=== PATIENT | female | born 1985 | race Caucasian/White ===

== ENCOUNTER 2020-04-16 11:50 | Day surgery (SDC) | payer OTHER ==
[2020-04-15 09:23] VITALS: BMI 38.7
[2020-04-15 10:47] LABS: Hemoglobin 13.4 g/dL (12.0-16.0); Mean Corpuscular Hemoglobin 31.9 pg (27.0-31.0); Mean Corpuscular Volume 96.6 fL (78.0-98.0); Mean Platelet Volume 9.5 fL (7.4-10.4); Platelet Count 224 thou/uL (130-400); Red Blood Cell (RBC) Count 4.19 mill/uL (4.20-5.40); White Blood Cell (WBC) Count 5.5 thou/uL (4.8-10.8)
[2020-04-15 17:36] LABS: SARS-CoV-2 MS2 Positive; SARS-CoV-2 N Gene Negative; SARS-CoV-2 S Gene Negative; SARS-CoV-2 orf1ab Negative
[~2020-04-16 11:50] MED LIST: Dexamethasone 20 MG/5 ML VIAL ONE; EPHEDRINE 25 MG/5 ML SYRINGE ONE; Lidocaine 1% PF 5 ML VIAL ONE; Ondansetron PF 4 MG/2 ML Vial ONE; PHENYLEPHRINE-NS 100 MCG/ML 10 ML SYRINGE ONE; PROPOFOL 200 MG/20 ML VIAL ONE; Succinylcholine Chloride 20 MG/ML 10 ml SYRINGE FS ONE
[2020-04-16] MEDS ORDERED: Gabapentin 300 MG CAP ONE (12:28)
[2020-04-16] MEDS ORDERED: CeleCOXIB 100 MG CAP ONE (12:28)
[2020-04-16] MEDS ORDERED: Fentanyl 100 MCG/2 ML VIAL ONE ×2 (12:34→13:27)
[2020-04-16] MEDS ORDERED: Promethazine HCl 25 MG/ML VIAL ONE (14:07)
--- NOTE | 2020-04-16 22:03 | OP ---
DATE OF PROCEDURE: 04/16/2020 PREOPERATIVE DIAGNOSIS: Missed miscarriage at 10 weeks, desires surgical management. POSTOPERATIVE DIAGNOSIS: Missed miscarriage at 10 weeks, desires surgical management. PROCEDURE PERFORMED: Cervical dilation and suction curettage. ANESTHESIA: LMA. ESTIMATED BLOOD LOSS: 300 mL. COMPLICATIONS: None. OPERATIVE FINDINGS: Uterus sounds to 13 cm. PROCEDURE DETAILS: The patient was taken back to the OR with IV fluids running. When she was in the OR, anesthesia was obtained with the patient in dorsal supine position. Next, the patient was placed in the lithotomy position, and the vagina was prepped and draped for the procedure. The bladder was drained. An operative speculum was placed into the vagina and the anterior lip of the cervix was grasped with a tenaculum. The uterus sounded to 13 cm. The cervix was serially dilated with Hegar dilators. Attention was made to pass an 11 mm curette; however, it would not easily pass through the internal cervical os. A 9 mm curette was used and passed through the cervical os. It was placed on suction, which was then calibrated. With gentle manual rotation of the suction curettage, products of conception were removed from the uterus and into a specimen catch. This procedure was repeated until no further products of conception were noted through the suction tubing and minimal bleeding were noted through the suction tubing. A sharp curette was used to pass through the cervix for curettage of the endometrial cavity. Once it was felt that there was uterine cry in all planes and there was no further POC, the procedure was completed. The tenaculum was removed with minimal bleeding from the tenaculum site. No bleeding was noted from the cervical os. The patient was cleaned, dried, and taken out of lithotomy position. She awoke from anesthesia and was transferred to the recovery room in good condition. The products of conception were placed into a plastic container with saline that was provided from the [facility]. I have taken the products of conception back to my office where with the patient's consent, they will be mailed today to [facility] for genetic sequencing. Job ID: [id number]
== END 2020-04-16 16:11 | disposition home or self-care (01) ==
LOC: SDC 11:50
PROVIDERS: ATTEND Obstetrics & Gynecology
PROC: 10D18ZZ Extraction of Products of Conception, Retained, Via Natural or Artificial Opening Endoscopic (ICD-10-PCS; principal; 2020-04-16)
DX: O02.1 Missed abortion (principal); F41.9 Anxiety disorder, unspecified; F32.9 Major depressive disorder, single episode, unspecified; N96 Recurrent pregnancy loss; Z79.899 Other long term (current) drug therapy; Z88.1 Allergy status to other antibiotic agents; Z88.5 Allergy status to narcotic agent
CPT/HCPCS: 85027; 86850; 86900; 86901; 87635; J1100; J2001; J2405; J2550; J2704; J3010; J3490; U0003